=== PATIENT | female | born 1945 | race Caucasian/White ===

== ENCOUNTER → 2023-08-22 | Outpatient (CLI) | payer MEDICARE, MEDICAID ==
[~2023-08-22] VITALS: Ht 190.5 cm; Wt 64.0 kg
[2023-08-22 15:56] VITALS: PULSE 73; RESP 18; O2SAT 95
[2023-08-22] MEDS: albuterol 2.5 MG/3 ML nebule NEB ONE (16:01)
== END | disposition home or self-care (01) ==
LOC: RT 15:16
PROVIDERS: ATTEND Physician Assistant
DX: J44.9 Chronic obstructive pulmonary disease, unspecified (principal)
CPT/HCPCS: 94060; 94760